=== PATIENT | male | born 1965 | race Caucasian/White ===

== ENCOUNTER 2018-02-14 23:28 | Inpatient (IN) | payer BC ==
[2018-02-14 23:51] LABS: ADD MAN DIFF? NO
[2018-02-14] MEDS: NITROGLYCERIN SUBLINGUAL 0.4 MG BOTTLE OF 25. SL (23:57)
[2018-02-14] MEDS: ASPIRIN CHEWABLE 81 MG TABLET. PO (23:57)
[2018-02-15 00:01] LABS: ANION GAP 8 (6-14); BLOOD UREA NITROGEN 19 mg/dL (8-26); BUN/CREATININE RATIO 15 (6-20); CALCIUM 9.4 mg/dL (8.5-10.1); CARBON DIOXIDE 28 mmol/L (21-32); CHLORIDE 99 mmol/L (98-107); CREATININE 1.3 mg/dL (0.7-1.3); GFR 57.7; GLUCOSE 409 mg/dL (70-99); POTASSIUM 4.6 mmol/L (3.5-5.1); SODIUM 135 mmol/L (136-145)
[2018-02-15 00:02] LABS: BASO % 1 % (0-3); EOS # 0.5 x10^3/uL (0.0-0.7); EOS % 5 % (0-3); HEMATOCRIT 44.5 % (39.0-53.0); HEMOGLOBIN 15.9 g/dL (13.0-17.5); LYMPH # 2.5 x10^3/uL (1.0-4.8); LYMPH % 24 % (24-48); MEAN CORPUSCULAR HEMOGLOBIN 33 pg (25-35); MEAN CORPUSCULAR HGB CONC 36 g/dL (31-37); MEAN CORPUSCULAR VOLUME 92 fL (79-100); MONO # 0.6 x10^3/uL (0.0-1.1); MONO % 6 % (0-9); NEUT # 6.7 x10^3uL (1.8-7.7); NEUT % 65 % (31-73); PLATELET COUNT 259 x10^3/uL (140-400); RED BLOOD COUNT 4.84 x10^6/uL (4.30-5.70); RED CELL DISTRIBUTION WIDTH 12.3 % (11.5-14.5); WHITE BLOOD COUNT 10.4 x10^3/uL (4.0-11.0)
[2018-02-15 00:05] LABS: AGAP ISTAT 16 mmol/L (6-14); BUN ISTAT 21 mg/dL (8-26); CHLORIDE ISTAT 100 mmol/L (98-110); GLUCOSE ISTAT 398 mg/dL (70-99); HEMATOCRIT ISTAT 46 % (37-52); HEMOGLOBIN ISTAT 15.6 g/dL (14-18); ION CA ISTAT 1.23 mmol/L (1.13-1.32); POTASSIUM ISTAT 4.6 mmol/L (3.5-5.0); SODIUM ISTAT 137 mmol/L (135-145); TOT CO2 ISTAT 26 mmol/L (23-32)
[2018-02-15 00:07] LABS: ALBUMIN 4.1 g/dL (3.4-5.0); ALBUMIN/GLOBULIN RATIO 0.9 (1.0-1.7); ALK PHOS 81 U/L (46-116); ALT (SGPT) 40 U/L (16-63); TOTAL BILIRUBIN 0.5 mg/dL (0.2-1.0); TOTAL PROTEIN 8.6 g/dL (6.4-8.2)
[2018-02-15] MEDS: fentaNYL PF VIAL 100 MCG/2 ML VIAL IV ×6 (00:15→23:23)
[2018-02-15] MEDS ORDERED: CONTRAST GIVEN MC (00:30)
[2018-02-15] MEDS: IOHEXOL 300 MG/ML 100ML VIAL. IV (00:30)
[2018-02-15 00:40] LABS: AST (SGOT) 25 U/L (15-37)
[2018-02-15] MEDS ORDERED: MIDAZOLAM HCL/PF 2 MG/2 ML VIAL. (00:47)
[2018-02-15] MEDS ORDERED: LIDOCAINE 2% 20 ML VIAL. (00:47)
[2018-02-15] MEDS ORDERED: fentaNYL PF VIAL 100 MCG/2 ML VIAL (00:47)
[2018-02-15] MEDS ORDERED: IODIXANOL 320 MG/ML 100 ML VIAL. ×3 (00:51→01:38)
[2018-02-15] MEDS: NITROGLYCERIN SUBLINGUAL 0.4 MG BOTTLE OF 25. SL (00:51)
[2018-02-15] MEDS: MIDAZOLAM HCL/PF 2 MG/2 ML VIAL. IV (01:15)
[2018-02-15] MEDS ORDERED: BIVALIRUDIN 250 MG VIAL. IV (01:22)
[2018-02-15] MEDS ORDERED: HEPARIN for IV BOLUS 10,000 UNIT/10 ML VIAL. (01:31)
[2018-02-15] MEDS: CLOPIDOGREL BISULFATE 75 MG TABLET PO (01:45)
[2018-02-15] MEDS ORDERED: TICAGRELOR 90 MG TABLET. (02:03)
[2018-02-15] MEDS ORDERED: ASPIRIN 325 MG TABLET (02:03)
[2018-02-15] MEDS ORDERED: NITROGLYCERIN PREMIX 250 ML IV (02:14)
[2018-02-15] MEDS: NITROGLYCERIN PREMIX 250 ML IV ×2 (02:15→02:45)
[2018-02-15] MEDS: ASPIRIN 325 MG TABLET PO (02:20)
[2018-02-15] MEDS: TICAGRELOR 90 MG TABLET. PO ×3 (02:20→21:15)
[2018-02-15] MEDS: BIVALIRUDIN 250 MG VIAL. IV (02:28)
[2018-02-15] MEDS: LIDOCAINE 2% 20 ML VIAL. IJ (02:29)
[2018-02-15] MEDS: IODIXANOL 320 MG/ML 100 ML VIAL. IART (02:30)
[2018-02-15] MEDS: HEPARIN for IV BOLUS 10,000 UNIT/10 ML VIAL. IV (02:31)
[2018-02-15] MEDS ORDERED: ATROPINE 0.5 MG/5 ML DISP.SYRINGE. IV (02:45)
[2018-02-15] MEDS ORDERED: LIDOCAINE 2% 100 MG/5 ML SYRINGE. IV (02:45)
[2018-02-15] MEDS ORDERED: 0.9 % SODIUM CHLORIDE 10 ML DISP.SYRIN. IV (02:45)
[2018-02-15] MEDS ORDERED: HYDROcodone/APAP 5/325MG 1 TAB TABLET PO (02:45)
[2018-02-15] MEDS ORDERED: AMIODARONE 150 MG in IV DEXTROSE 5% 100 ML IV (02:45)
[2018-02-15] MEDS ORDERED: NITROGLYCERIN SUBLINGUAL 0.4 MG BOTTLE OF 25. SL (02:45)
[2018-02-15] MEDS ORDERED: HEPARIN for IV BOLUS 10,000 UNIT/10 ML VIAL. IV (03:30)
[2018-02-15] MEDS ORDERED: HEPARIN 25,000UTS/500ML PREMIX 500 ML IV (03:30)
[2018-02-15] MEDS: HEPARIN 25,000UTS/500ML PREMIX 500 ML IV (03:33)
[2018-02-15 05:03] LABS: TROPONINI 0.988 ng/mL (0.000-0.055)
[2018-02-15 05:26] LABS: BLOOD UREA NITROGEN 17 mg/dL (8-26); CALCIUM 8.8 mg/dL (8.5-10.1); GLUCOSE 395 mg/dL (70-99)
[2018-02-15 05:27] LABS: ANION GAP 6 (6-14); CARBON DIOXIDE 28 mmol/L (21-32); CHLORIDE 103 mmol/L (98-107); CHOLESTEROL 218 mg/dL (0-200); CHOLESTEROL/HDL RATIO 6.6; CREATININE 1.2 mg/dL (0.7-1.3); GFR 63.3; HDLC 33 mg/dL (40-60); LDLC 98 mg/dL (0-100); MAGNESIUM 2.1 mg/dL (1.8-2.4); NON-HDL CHOLESTEROL 185 mg/dL (0-129); POTASSIUM 4.9 mmol/L (3.5-5.1); SODIUM 137 mmol/L (136-145); TRIGLYCERIDES 434 mg/dL (0-150); VLDLC 87 mg/dL (0-40)
[2018-02-15] MEDS ORDERED: DEXTROSE 50% 25 GM / 50ML DISP.SYRIN. IV ×2 (08:15→10:00)
[2018-02-15] MEDS: METOPROLOL TART IMMED RELEASE 25 MG TABLET. PO (08:56)
[2018-02-15] MEDS: LOSARTAN POTASSIUM 50 MG TABLET. PO (08:57)
[2018-02-15] MEDS: INSULIN LISPRO 300 UNITS/3 ML INSULN.PEN. SQ ×6 (08:58→21:33)
[2018-02-15] MEDS ORDERED: LISINOPRIL 5 MG TABLET. PO (09:00)
[2018-02-15] MEDS: IV NORMAL SALINE 1000ML BAG 1,000 ML IV (09:56)
[2018-02-15 10:04] LABS: ISTAT ACT 119 sec (92-181)
[2018-02-15] MEDS: HYDROcodone/APAP 5/325MG 1 TAB TABLET PO (11:31)
[2018-02-15 11:38] LABS: POC GLUCOSE 307 mg/dL (70-99)
[2018-02-15] MEDS: TRIAMCINOLONE ACETONIDE 0.1% TOPICAL CREAM 15GM TUBE. TP ×2 (12:18→21:16)
[2018-02-15 17:50] LABS: POC GLUCOSE 230 mg/dL (70-99)
[2018-02-15] MEDS: ATORVASTATIN CALCIUM 20 MG TABLET PO (21:14)
[2018-02-15] MEDS: amLODIPine BESYLATE 10 MG TABLET PO (21:15)
[2018-02-15] MEDS: hydrALAZINE 20 MG/ML VIAL. IVP (21:16)
[2018-02-15] MEDS: INSULIN GLARGINE 300 UNITS/3 ML INSULN.PEN. SQ (21:19)
[2018-02-15 21:24] LABS: POC GLUCOSE 285 mg/dL (70-99)
[2018-02-15 23:11] LABS: MRSA BY PCR Negative (Negative)
[2018-02-16 03:40] LABS: ADD MAN DIFF? NO
[2018-02-16] MEDS: IV NORMAL SALINE 1000ML BAG 1,000 ML IV ×2 (03:46→18:32)
[2018-02-16] MEDS: ACETAMINOPHEN 325 MG TABLET. PO ×2 (03:46→08:20)
[2018-02-16 03:50] LABS: BASO % 0 % (0-3); EOS # 0.2 x10^3/uL (0.0-0.7); EOS % 1 % (0-3); HEMATOCRIT 43.5 % (39.0-53.0); HEMOGLOBIN 15.5 g/dL (13.0-17.5); LYMPH # 1.8 x10^3/uL (1.0-4.8); LYMPH % 12 % (24-48); MEAN CORPUSCULAR HEMOGLOBIN 33 pg (25-35); MEAN CORPUSCULAR HGB CONC 36 g/dL (31-37); MEAN CORPUSCULAR VOLUME 92 fL (79-100); MONO # 0.8 x10^3/uL (0.0-1.1); MONO % 5 % (0-9); NEUT # 11.9 x10^3uL (1.8-7.7); NEUT % 81 % (31-73); PLATELET COUNT 228 x10^3/uL (140-400); RED BLOOD COUNT 4.73 x10^6/uL (4.30-5.70); RED CELL DISTRIBUTION WIDTH 12.6 % (11.5-14.5); WHITE BLOOD COUNT 14.7 x10^3/uL (4.0-11.0)
[2018-02-16 04:07] LABS: ANION GAP 11 (6-14); BLOOD UREA NITROGEN 15 mg/dL (8-26); CALCIUM 8.8 mg/dL (8.5-10.1); CARBON DIOXIDE 24 mmol/L (21-32); CHLORIDE 101 mmol/L (98-107); CREATININE 0.9 mg/dL (0.7-1.3); GFR 88.3; GLUCOSE 225 mg/dL (70-99); SODIUM 136 mmol/L (136-145)
[2018-02-16 04:41] LABS: POTASSIUM 3.6 mmol/L (3.5-5.1)
[2018-02-16 07:06] LABS: POC GLUCOSE 301 mg/dL (70-99)
[2018-02-16] MEDS: METOPROLOL TART IMMED RELEASE 50 MG TABLET. PO (08:20)
[2018-02-16] MEDS: TICAGRELOR 90 MG TABLET. PO ×2 (08:20→20:53)
[2018-02-16] MEDS: TRIAMCINOLONE ACETONIDE 0.1% TOPICAL CREAM 15GM TUBE. TP ×2 (08:20→20:53)
[2018-02-16] MEDS: ASPIRIN ENTERIC COATED 81 MG TABLET.DR. PO (08:20)
[2018-02-16] MEDS: LOSARTAN POTASSIUM 50 MG TABLET. PO (08:21)
[2018-02-16] MEDS: INSULIN LISPRO 300 UNITS/3 ML INSULN.PEN. SQ ×7 (08:40→21:00)
[2018-02-16 08:41] LABS: POC GLUCOSE 231 mg/dL (70-99)
[2018-02-16] MEDS ORDERED: TICAGRELOR 90 MG TABLET. PO (09:00)
[2018-02-16 12:42] LABS: POC GLUCOSE 217 mg/dL (70-99)
[2018-02-16] MEDS: POTASSIUM CHLORIDE 20 MEQ TABLET.ER. PO (14:41)
[2018-02-16 17:40] LABS: POC GLUCOSE 236 mg/dL (70-99)
[2018-02-16] MEDS: CARVEDILOL 12.5 MG TABLET. PO (18:35)
[2018-02-16 20:52] LABS: POC GLUCOSE 311 mg/dL (70-99)
[2018-02-16] MEDS: ATORVASTATIN CALCIUM 20 MG TABLET PO (20:53)
[2018-02-16] MEDS: INSULIN GLARGINE 300 UNITS/3 ML INSULN.PEN. SQ (20:56)
[2018-02-17 05:06] LABS: ADD MAN DIFF? NO
[2018-02-17 05:19] LABS: BASO % 0 % (0-3); EOS # 0.4 x10^3/uL (0.0-0.7); EOS % 3 % (0-3); HEMATOCRIT 42.8 % (39.0-53.0); HEMOGLOBIN 15.2 g/dL (13.0-17.5); LYMPH # 2.7 x10^3/uL (1.0-4.8); LYMPH % 22 % (24-48); MEAN CORPUSCULAR HEMOGLOBIN 33 pg (25-35); MEAN CORPUSCULAR HGB CONC 36 g/dL (31-37); MEAN CORPUSCULAR VOLUME 92 fL (79-100); MONO # 0.9 x10^3/uL (0.0-1.1); MONO % 7 % (0-9); NEUT # 8.3 x10^3uL (1.8-7.7); NEUT % 68 % (31-73); PLATELET COUNT 242 x10^3/uL (140-400); RED BLOOD COUNT 4.64 x10^6/uL (4.30-5.70); RED CELL DISTRIBUTION WIDTH 12.4 % (11.5-14.5); WHITE BLOOD COUNT 12.3 x10^3/uL (4.0-11.0)
[2018-02-17 05:49] LABS: ANION GAP 9 (6-14); BLOOD UREA NITROGEN 18 mg/dL (8-26); CALCIUM 9.5 mg/dL (8.5-10.1); CARBON DIOXIDE 26 mmol/L (21-32); CHLORIDE 102 mmol/L (98-107); CREATININE 0.9 mg/dL (0.7-1.3); GFR 88.3; GLUCOSE 177 mg/dL (70-99); POTASSIUM 3.8 mmol/L (3.5-5.1); SODIUM 137 mmol/L (136-145)
[2018-02-17] MEDS: INSULIN LISPRO 300 UNITS/3 ML INSULN.PEN. SQ ×2 (07:30→08:48)
[2018-02-17 08:04] LABS: POC GLUCOSE 137 mg/dL (70-99)
[2018-02-17] MEDS: TRIAMCINOLONE ACETONIDE 0.1% TOPICAL CREAM 15GM TUBE. TP (08:43)
[2018-02-17] MEDS: TICAGRELOR 90 MG TABLET. PO (08:43)
[2018-02-17] MEDS: ASPIRIN ENTERIC COATED 81 MG TABLET.DR. PO (08:43)
[2018-02-17] MEDS: LOSARTAN POTASSIUM 50 MG TABLET. PO (08:44)
[2018-02-17] MEDS: CARVEDILOL 12.5 MG TABLET. PO (08:44)
[2018-02-17] MEDS: hydroCHLOROthiazide 12.5 MG CAPSULE PO (09:03)
== END 2018-02-17 12:10 | disposition home or self-care (01) | DRG 247 ==
LOC: 1 WEST ICU 02-15 01:00 → ER 23:28 → 2 SOUTH 02-16 18:22
PROC: 027034Z Dilation of Coronary Artery, One Artery with Drug-eluting Intraluminal Device, Percutaneous Approach (ICD-10-PCS; principal; 2018-02-15)
PROC: 4A023N7 Measurement of Cardiac Sampling and Pressure, Left Heart, Percutaneous Approach (ICD-10-PCS; 2018-02-15)
PROC: B2151ZZ Fluoroscopy of Left Heart using Low Osmolar Contrast (ICD-10-PCS; 2018-02-15)
DX: I21.3 ST elevation (STEMI) myocardial infarction of unspecified site (principal); I11.0 Hypertensive heart disease with heart failure; I50.20 Unspecified systolic (congestive) heart failure; E11.65 Type 2 diabetes mellitus with hyperglycemia; Z95.5 Presence of coronary angioplasty implant and graft; D72.829 Elevated white blood cell count, unspecified; E78.5 Hyperlipidemia, unspecified; I16.0 Hypertensive urgency; M19.90 Unspecified osteoarthritis, unspecified site; M10.9 Gout, unspecified; I25.10 Atherosclerotic heart disease of native coronary artery without angina pectoris; I25.2 Old myocardial infarction; Z79.4 Long term (current) use of insulin; Z82.49 Family history of ischemic heart disease and other diseases of the circulatory system; Z83.3 Family history of diabetes mellitus
CPT/HCPCS: 36415; 71045; 71275; 80047; 80048; 80053; 80061; 82962; 83735; 84484; 85025; 85347; 87641; 92928; 93005; 93306; 93458; 96374; 96375; 99285; 99285-25; C1713; C1725; C1769; C1892; J0360; J0583; J1644; J1815; J3010; J3490; J7030; J7050

== ENCOUNTER → 2019-05-16 | Outpatient (CLI) | payer BC ==
[2018-02-17 11:00] VITALS: BP 151/101
[~2019-05-16] MED LIST: AMLO5TAB10 PO; AMLO5TAB4 PO; ASPI-612 PO; ATOR40TA PO; ATOR40TA59 PO; CARV12.511 PO; CARV25TA PO; CEFA2PIG IV; CIPR500T95 PO; CLOP75TA PO; COLC0.6T34 PO; EMPA25TA PO; EXEN2AUT SQ; FURO20TA3 PO; GABA300C18 PO; HYDR-2145 PO; HYDR12.575 PO; INDO75CA3 PO; INSU100I13 SQ; INSU100I17 SQ; INSU100I32 SQ; LOSA-73 PO; LOSA100T14 PO; LOSA25TA54 PO; METF10007 PO; METF500T16 PO; METO50TA6 PO; OMEG-33 PO; OXYC10TA PO; POTA10TA12 PO; TICA90TA PO; TRAZ-118 PO; VALS320T2 PO; percocet PO
[2019-05-16 12:31] LABS: ALBUMIN 3.6 g/dL (3.4-5.0); GFR 77.6; POTASSIUM 4.1 mmol/L (3.5-5.1)
[2019-05-16 12:38] LABS: BASO # 0.1 x10^3/uL (0.0-0.2); BASO % 1 % (0-3); EOS # 0.5 x10^3/uL (0.0-0.7); EOS % 5 % (0-3); HEMATOCRIT 40.6 % (39.0-53.0); HEMOGLOBIN 14.4 g/dL (13.0-17.5); LYMPH # 2.2 x10^3/uL (1.0-4.8); LYMPH % 22 % (24-48); MEAN CORPUSCULAR HEMOGLOBIN 33 pg (25-35); MEAN CORPUSCULAR HGB CONC 36 g/dL (31-37); MEAN CORPUSCULAR VOLUME 93 fL (79-100); MONO # 0.6 x10^3/uL (0.0-1.1); MONO % 6 % (0-9); NEUT # 6.6 x10^3/uL (1.8-7.7); NEUT % 67 % (31-73); PLATELET COUNT 243 x10^3/uL (140-400); RED BLOOD COUNT 4.39 x10^6/uL (4.30-5.70); RED CELL DISTRIBUTION WIDTH 12.7 % (11.5-14.5); WHITE BLOOD COUNT 9.9 x10^3/uL (4.0-11.0)
== END | disposition home or self-care (01) ==
LOC: SURGPAT 11:37
PROVIDERS: ATTEND Surgery
DX: Z01.818 Encounter for other preprocedural examination (principal); K42.9 Umbilical hernia without obstruction or gangrene; R59.1 Generalized enlarged lymph nodes
CPT/HCPCS: 36415; 80048; 82040; 85025

== ENCOUNTER 2019-05-23 10:03 | Day surgery (SDC) | payer BC ==
[~2019-05-23] VITALS: Ht 182.9 cm; Wt 88.0 kg
[~2019-05-23 10:03] MED LIST changes: +BUPIVACAINE-EPI 0.5%-1:200000 MPF 30 ML VIAL. INJ ONE; +HYDROmorphone 2 MG/ML VIAL IV PRN; +IV RINGERS,LACTATED 1000ML 1,000 ML IV SCH; +MORPHINE SULFATE 2 MG/ML VIAL. IV PRN; +ONDANSETRON PF 4 MG/2 ML VIAL. IV PRN; +PROCHLORPERAZINE 10 MG/2 ML VIAL. IV PRN; +fentaNYL PF VIAL 100 MCG/2 ML VIAL IV PRN
[2019-05-23] MEDS ORDERED: SCOPOLAMINE 1.5MG PATCH. TD SCH (10:42)
--- NOTE | 2019-05-23 12:03 | RAD ---
Examination: EXTREM NONVASCULAR LTD RIGHT History: Right groin lymph nodes Comparison/Correlation: None Findings: Ultrasound imaging of the right groin was performed. Benign-appearing lymph nodes are present. Normal clark evident. No suspicious cortical thickening identified. No suspicious mass. Impression: No suspicious right groin lymph nodes. Electronically signed by: Dion Jesus MD (05/23/2019 12:00 PM) [facility]
[2019-05-23] MEDS ORDERED: ONDANSETRON PF 4 MG/2 ML VIAL. ONE (12:59)
[2019-05-23] MEDS ORDERED: DEXAMETHASONE SOD PHOS 4 MG/ML VIAL ONE (12:59)
[2019-05-23] MEDS ORDERED: PROPOFOL 20 ML IV ONE (12:59)
[2019-05-23] MEDS ORDERED: LIDOCAINE 2% PF 5 ML VIAL. ONE (12:59)
[2019-05-23] MEDS ORDERED: fentaNYL PF VIAL 100 MCG/2 ML VIAL ONE (13:00)
[2019-05-23] MEDS ORDERED: MIDAZOLAM HCL/PF 2 MG/2 ML VIAL. ONE (13:01)
[2019-05-23] MEDS ORDERED: BUPIVACAINE MPF 0.5% 30 ML VIAL. IJ ONE (13:38)
[2019-05-23] MEDS ORDERED: PHENYLEPHRINE in 0.9% NACL PF 1 MG/10 ML SYRINGE. IV ONE (13:48)
--- NOTE | 2019-05-23 14:17 | DISCH ---
DISCHARGE INSTRUCTIONS Condition on Discharge Condition on Discharge: Stable Activity After Discharge Activity Instructions for Disc: Activity as tolerated, Avoid exertion Lifting Instructions after Dis: No heavy lifting Driving Instructions after Dis: Do not drive (2-3 days) Diet after Discharge Diet after Discharge: Cardiac Diet Texture: Regular Wound Incision Care Wound/Incision Care: Ice to area for comfort, Other, see below (january) Checks after Discharge Checks after discharge: Check blood press - daily, Check blood sugar, ac/hs Follow-Up Follow up with: Carlos Alberto two weeks Treatment/Equipment after DC Adaptive Equipment Issued: None SHIMA DENIS MD May 23, 2019 14:16
--- NOTE | 2019-05-23 14:37 | PDOC ---
BRIEF OPERATIVE NOTE Date: May 23, 2019 Pre-Op Diagnosis umbilical hernia Post-Op Diagnosis same Procedure Performed primary repair Surgeon Carlos Alberto Anesthesia Type: General Blood Loss 5cc IV Fluid 700cc Specimens Obtained none Findings small defect with extruded omentum Complications none Operative Note Wk # [id number] SHIMA DENIS MD May 23, 2019 14:37
[2019-05-23] MEDS ORDERED: OXYC1TAB15 PO (14:39)
[2019-05-23] MEDS ORDERED: DOCU-150 PO (14:40)
[2019-05-23] MEDS ORDERED: oxyCODONE/APAP 5/325 1 TAB TABLET PO ONE (14:45)
--- NOTE | 2019-05-23 14:45 | OP ---
DATE OF SURGERY: 05/23/2019 PREOPERATIVE DIAGNOSIS: Umbilical hernia. POSTOPERATIVE DIAGNOSIS: Umbilical hernia. PROCEDURE: Primary repair. SURGEON: Scott Denis MD ANESTHESIA: General endotracheal. ESTIMATED BLOOD LOSS: 5 mL. INTRAVENOUS FLUIDS: 700 mL. DESCRIPTION OF PROCEDURE: The patient brought to the operating suite, given a general anesthetic and the abdomen prepped and draped in usual sterile fashion. An infraumbilical incision was infiltrated with 0.5% plain Marcaine, incised and dissection carried down to the anterior sheath. Hernia was encircled and a Kaleb drain placed around it. The umbilical skin was freed from the hernia sac. The contents were mobilized and reduced. The small defect was closed with interrupted inverted 0 PDS followed by a single stitch of 0 Vicryl. Good hemostasis was present. The umbilical skin tacked to the repair with 3-0 Vicryl, skin closed with a subcuticular 4-0 Monocryl. Steri-Strips and sterile dressing applied. The patient was awakened from his anesthetic and taken to the recovery room in satisfactory condition. SCOTT DENIS MD DR: VIET/carmela JOB#: [id number] / [id number]
[2019-05-23 15:15] VITALS: BP 149/97
== END 2019-05-23 15:49 | disposition home or self-care (01) ==
LOC: US 10:03
PROVIDERS: ATTEND Surgery
DX: K42.9 Umbilical hernia without obstruction or gangrene (principal); E78.5 Hyperlipidemia, unspecified; K21.9 Gastro-esophageal reflux disease without esophagitis; I25.10 Atherosclerotic heart disease of native coronary artery without angina pectoris; I25.2 Old myocardial infarction; Z79.82 Long term (current) use of aspirin; Z95.5 Presence of coronary angioplasty implant and graft; Z98.890 Other specified postprocedural states
CPT/HCPCS: 49585; 76882; 82962; A7015; J0696; J1100; J2001; J2250; J2370; J2405; J2704; J3010; J3490; J7120

== ENCOUNTER → 2019-07-02 | Outpatient (CLI) | payer BC ==
[~2019-07-02] MED LIST changes: -BUPIVACAINE-EPI 0.5%-1:200000 MPF 30 ML VIAL. INJ ONE; +DOCU-150 PO; -HYDROmorphone 2 MG/ML VIAL IV PRN; -IV RINGERS,LACTATED 1000ML 1,000 ML IV SCH; -MORPHINE SULFATE 2 MG/ML VIAL. IV PRN; -ONDANSETRON PF 4 MG/2 ML VIAL. IV PRN; +OXYC1TAB15 PO; -PROCHLORPERAZINE 10 MG/2 ML VIAL. IV PRN; -fentaNYL PF VIAL 100 MCG/2 ML VIAL IV PRN
--- NOTE | 2019-07-02 13:31 | RAD ---
MR of the right foot HISTORY: Right forefoot osteomyelitis. First toe ulcer. TECHNIQUE: Routine multiplanar sequences are obtained. FINDINGS: Mild marrow edema within the distal phalanx of the first toe. No aggressive bone destruction. Replacement of the normal subcutaneous fatty signal at the distal aspect of the first toe with skin thickening, presumably related to the distal toe ulcer. There is minimal fluid signal located lateral to the distal aspect of the proximal first phalanx, only measuring 7 x 3 x 6 mm. Uncertain nature but could represent a tiny abscess. No other fluid collection is seen. Visualized tendons are intact. No significant tendon sheath fluid. Lisfranc ligament complex is intact as is tarsometatarsal alignment. Mild diffuse intramuscular and soft tissue edema. IMPRESSION: 1. Soft tissue changes at the distal aspect of first toe compatible with edema or cellulitis. 2. Tiny fluid signal pocket lateral to the base of the first toe, nonspecific but possibly a tiny subcentimeter abscess. 3. Mild marrow edema within the distal first phalanx may just be reactive. No specific or definitive evidence of osteomyelitis, but the possibility of early osteomyelitis should not be completely excluded given the presence of an adjacent ulcer. Electronically signed by: Sree Mendes MD (07/02/2019 1:28 PM) [facility]
== END | disposition home or self-care (01) ==
LOC: MRI 10:15
PROVIDERS: ATTEND Podiatrist Foot & Ankle Surgery
DX: R60.0 Localized edema (principal)
CPT/HCPCS: 73718

== ENCOUNTER 2019-07-10 09:46 | Day surgery (SDC) | payer BC ==
[~2019-07-10] VITALS: Ht 175.3 cm; Wt 76.2 kg
[~2019-07-10 09:46] MED LIST changes: +HYDROmorphone 2 MG/ML VIAL IV PRN; +IV RINGERS,LACTATED 1000ML 1,000 ML IV SCH; +MORPHINE SULFATE 2 MG/ML VIAL. IV PRN; +ONDANSETRON PF 4 MG/2 ML VIAL. IV PRN; +PROCHLORPERAZINE 10 MG/2 ML VIAL. IV PRN; +fentaNYL PF VIAL 100 MCG/2 ML VIAL IV PRN
[2019-07-10] MEDS ORDERED: SCOPOLAMINE 1.5MG PATCH. TD ONE (10:45)
[2019-07-10 10:57] LABS: BASO % 0 % (0-3); EOS # 0.5 x10^3/uL (0.0-0.7); EOS % 5 % (0-3); HEMATOCRIT 41.5 % (39.0-53.0); HEMOGLOBIN 14.8 g/dL (13.0-17.5); LYMPH # 2.4 x10^3/uL (1.0-4.8); LYMPH % 27 % (24-48); MEAN CORPUSCULAR HEMOGLOBIN 33 pg (25-35); MEAN CORPUSCULAR HGB CONC 36 g/dL (31-37); MEAN CORPUSCULAR VOLUME 92 fL (79-100); MONO # 0.5 x10^3/uL (0.0-1.1); MONO % 6 % (0-9); NEUT # 5.4 x10^3/uL (1.8-7.7); NEUT % 62 % (31-73); PLATELET COUNT 228 x10^3/uL (140-400); RED BLOOD COUNT 4.53 x10^6/uL (4.30-5.70); RED CELL DISTRIBUTION WIDTH 12.5 % (11.5-14.5); WHITE BLOOD COUNT 8.8 x10^3/uL (4.0-11.0)
[2019-07-10 11:00] LABS: CALCIUM 8.8 mg/dL (8.5-10.1); GFR 77.6
[2019-07-10] MEDS ORDERED: INSULIN LISPRO 100 UNIT/ML 3ML VIAL for OP,RR ONLY. SQ PRN (11:15)
[2019-07-10] MEDS ORDERED: DEXAMETHASONE SOD PHOS 4 MG/ML VIAL ONE ×2 (11:19→11:35)
[2019-07-10] MEDS ORDERED: PROPOFOL 20 ML IV ONE (11:19)
[2019-07-10] MEDS ORDERED: FAMOTIDINE 20 MG/2 ML VIAL ONE (11:19)
[2019-07-10] MEDS ORDERED: ONDANSETRON PF 4 MG/2 ML VIAL. ONE (11:19)
[2019-07-10] MEDS ORDERED: LIDOCAINE 2% PF 5 ML VIAL. ONE (11:19)
[2019-07-10] MEDS ORDERED: MIDAZOLAM HCL/PF 2 MG/2 ML VIAL. ONE (11:20)
[2019-07-10] MEDS ORDERED: KETOROLAC 30 MG/ML VIAL. ONE (11:22)
--- NOTE | 2019-07-10 11:27 | PDOC1 ---
History and Physical Date of Admission Date of Admission DATE: 07/10/19 TIME: 11:23 Identification/Chief Complaint Chief Complaint Foot infection Source Source: Chart review, Patient History of Present Illness History of Present Illness Mr Mosher is a 52 year old male w/ PMHx CAD s/p KALI x1 to LAD 02/19/18, HTN, HLD, DM2, Gout who is seen in outpatient for planned right great toe debridement of infection. Pt said he has no sob or N/V. no fever, chills, no CP, no recent sick contacts. He has vomiting with anesthesia previously. Holding ASA and plavix. Had recent EKG unchanged from prior, reviewed. Past Medical History Cardiovascular: CAD, HTN, [place], Hyperlipidemia Pulmonary: No pertinent hx CENTRAL NERVOUS SYSTEM: Other GI: No pertinent hx Heme/Onc: No pertinent hx Hepatobiliary: No pertinent hx Psych: No pertinent hx Musculoskeletal: Osteoarthritis, Other Rheumatologic: Gout Infectious disease: No pertinent hx Renal/: No pertinent hx Endocrine: Diabetes Past Surgical History Past Surgical History: Other Family History Family History: No Significant, Coronary Artery Disease, Diabetes, Hypertension Social History Smoke: No ALCOHOL: none Drugs: None Current Medications Current Medications Current Medications Ondansetron HCl (Zofran) 4 mg PRN Q6HRS PRN IV NAUSEA/VOMITING; Start 07/10/19 at 07:00; Stop 07/11/19 at 06:59 Fentanyl Citrate (Fentanyl 2ml Vial) 25 mcg PRN Q5MIN PRN IV MILD PAIN 1-3; Start 07/10/19 at 07:00; Stop 07/11/19 at 06:59 Fentanyl Citrate (Fentanyl 2ml Vial) 50 mcg PRN Q5MIN PRN IV MODERATE TO SEVERE PAIN; Start 07/10/19 at 07:00; Stop 07/11/19 at 06:59 Morphine Sulfate (Morphine Sulfate) 1 mg PRN Q10MIN PRN IV SEVERE PAIN 7-10; Start 07/10/19 at 07:00; Stop 07/11/19 at 06:59 Ringer's Solution 1,000 ml @ 30 mls/hr Q24H IV Last administered on 07/10/19at 10:37; Start 07/10/19 at 07:00; Stop 07/10/19 at 18:59 Hydromorphone HCl (Dilaudid) 0.5 mg PRN Q10MIN PRN IV SEV PAIN, Second choice; Start 07/10/19 at 07:00; Stop 07/11/19 at 06:59 Prochlorperazine Edisylate (Compazine) 5 mg PACU PRN PRN IV NAUSEA, MRX1; Start 07/10/19 at 07:00; Stop 07/11/19 at 06:59 Levofloxacin/ Dextrose 100 ml @ 100 mls/hr 1X PREOP PRN IV PRIOR TO PROCEDURE; Start 07/10/19 at 06:00; Stop 07/10/19 at 18:00 Scopolamine (Transderm-Scop) 1 patch 1X ONCE TD Last administered on 07/10/19at 11:05; Start 07/10/19 at 10:45; Stop 07/10/19 at 10:46; Status DC Insulin Human Lispro (HumaLOG VIAL for OP,RR ONLY) 0-10 units PRN Q1HR PRN SQ PER PROTOCOL; Start 07/10/19 at 11:15; Stop 07/11/19 at 11:14 Propofol 20 ml @ As Directed STK-MED ONCE IV ; Start 07/10/19 at 11:19; Stop 07/10/19 at 11:20; Status DC Famotidine (Pepcid Vial) 20 mg STK-MED ONCE .ROUTE ; Start 07/10/19 at 11:19; Stop 07/10/19 at 11:20; Status DC Lidocaine HCl (Lidocaine Pf 2% Vial) 5 ml STK-MED ONCE .ROUTE ; Start 07/10/19 at 11:19; Stop 07/10/19 at 11:20; Status DC Ondansetron HCl (Zofran) 4 mg STK-MED ONCE .ROUTE ; Start 07/10/19 at 11:19; Stop 07/10/19 at 11:20; Status DC Dexamethasone Sodium Phosphate (Decadron) 4 mg STK-MED ONCE .ROUTE ; Start 07/10/19 at 11:19; Stop 07/10/19 at 11:20; Status DC Midazolam HCl (Versed) 2 mg STK-MED ONCE .ROUTE ; Start 07/10/19 at 11:20; Stop 07/10/19 at 11:20; Status DC Ketorolac Tromethamine (Toradol 30mg Vial) 30 mg STK-MED ONCE .ROUTE ; Start 07/10/19 at 11:22; Stop 07/10/19 at 11:22; Status DC Active Scripts Active Hydrochlorothiazide Capsule (Hydrochlorothiazide) 12.5 Mg Capsule 25 Mg PO DAILY 30 Days Losartan Potassium 100 Mg Tablet 1 Tab PO DAILY Aspirin Ec (Aspirin) 81 Mg Tablet.dr 81 Mg PO DAILYWBKFT Reported Stool Softener (Docusate Sodium) 100 Mg Capsule 100 Mg PO BID Trazodone Hcl 50 Mg Tablet 50 Mg PO HS Jardiance (Empagliflozin) 25 Mg Tablet 25 Mg PO DAILY Clopidogrel (Clopidogrel Bisulfate) 75 Mg Tablet 1 Tab PO DAILY Bydureon Bcise (Exenatide Microspheres) 2 Mg/0.85 Ml Auto.injct 2 Mg SQ QSU Amlodipine Besylate 5 Mg Tablet 5 Mg PO DAILY Basaglar Kwikpen U-100 (Insulin Glargine,Hum.rec.anlog) 100 Unit/1 Ml Insuln.pen 32 Unit SQ HS Metformin Hcl 500 Mg Tablet 500 Mg PO BIDWMEALS Gabapentin (Gabapentin) 300 Mg Capsule 300 Mg PO TID Allergies Allergies: Coded Allergies: No Known Allergies (Verified Allergy, Unknown, 07/10/19) ROS Review of System CONSTITUTIONAL: No fever or chills EYES: No recent changes SKIN: No rash or itching CARDIOVASCULAR: No chest pain, syncope, palpitations, or edema RESPIRATORY: No SOB or cough GASTROINTESTINAL: No nausea, vomiting or abdominal pain NEUROLOGICAL: No headaches or weakness ENDOCRINE: No cold or heat intolerance GENITOURINARY: No urgency or frequency of urination MUSCULOSKELETAL: No back pain or joint pain LYMPHATICS: No enlarged lymph nodes PSYCHIATRIC: No anxiety or depression Physical Exam General: Alert, Oriented X3, Cooperative, No acute distress HEENT: Atraumatic, PERRLA, EOMI, Mucous membr. moist/pink Lungs: Clear to auscultation, Normal air movement Heart: S1S2, RRR, no gallops, no murmurs Rectal Exam: not examined Extremities: No clubbing, No cyanosis, No edema, Normal pulses, No tenderness/swelling Skin: No rashes, No breakdown, No significant lesion Neuro: Normal gait, Normal speech, Strength at 5/5 X4 ext, Normal tone, Cranial nerves 3-12 NL, Reflexes 2+, Other (Decreased sensation in glove and stocking distribution) Psych/Mental Status: Mental status NL, Mood NL Vitals Vitals Vital Signs Date Time Temp Pulse Resp B/P (MAP) Pulse Ox O2 Delivery O2 Flow Rate FiO2 07/10/19 10:27 97.0 89 18 176/108 96 Room Air 97.0 Labs Labs Laboratory Tests Test 07/10/19 10:20 07/10/19 11:08 White Blood Count 8.8 x10^3/uL (4.0-11.0) Red Blood Count 4.53 x10^6/uL (4.30-5.70) Hemoglobin 14.8 g/dL (13.0-17.5) Hematocrit 41.5 % (39.0-53.0) Mean Corpuscular Volume 92 fL (79-100) Mean Corpuscular Hemoglobin 33 pg (25-35) Mean Corpuscular Hemoglobin Concent 36 g/dL (31-37) Red Cell Distribution Width 12.5 % (11.5-14.5) Platelet Count 228 x10^3/uL (140-400) Neutrophils (%) (Auto) 62 % (31-73) Lymphocytes (%) (Auto) 27 % (24-48) Monocytes (%) (Auto) 6 % (0-9) Eosinophils (%) (Auto) 5 % (0-3) Basophils (%) (Auto) 0 % (0-3) Neutrophils # (Auto) 5.4 x10^3/uL (1.8-7.7) Lymphocytes # (Auto) 2.4 x10^3/uL (1.0-4.8) Monocytes # (Auto) 0.5 x10^3/uL (0.0-1.1) Eosinophils # (Auto) 0.5 x10^3/uL (0.0-0.7) Basophils # (Auto) 0.0 x10^3/uL (0.0-0.2) Sodium Level 139 mmol/L (136-145) Potassium Level 4.0 mmol/L (3.5-5.1) Chloride Level 105 mmol/L (98-107) Carbon Dioxide Level 28 mmol/L (21-32) Anion Gap 6 (6-14) Blood Urea Nitrogen 23 mg/dL (8-26) Creatinine 1.0 mg/dL (0.7-1.3) Estimated GFR (Cockcroft-Gault) 77.6 Glucose Level 136 mg/dL (70-99) Calcium Level 8.8 mg/dL (8.5-10.1) Glucose (Fingerstick) 110 mg/dL (70-99) Laboratory Tests Test 07/10/19 10:20 07/10/19 11:08 White Blood Count 8.8 x10^3/uL (4.0-11.0) Red Blood Count 4.53 x10^6/uL (4.30-5.70) Hemoglobin 14.8 g/dL (13.0-17.5) Hematocrit 41.5 % (39.0-53.0) Mean Corpuscular Volume 92 fL (79-100) Mean Corpuscular Hemoglobin 33 pg (25-35) Mean Corpuscular Hemoglobin Concent 36 g/dL (31-37) Red Cell Distribution Width 12.5 % (11.5-14.5) Platelet Count 228 x10^3/uL (140-400) Neutrophils (%) (Auto) 62 % (31-73) Lymphocytes (%) (Auto) 27 % (24-48) Monocytes (%) (Auto) 6 % (0-9) Eosinophils (%) (Auto) 5 % (0-3) Basophils (%) (Auto) 0 % (0-3) Neutrophils # (Auto) 5.4 x10^3/uL (1.8-7.7) Lymphocytes # (Auto) 2.4 x10^3/uL (1.0-4.8) Monocytes # (Auto) 0.5 x10^3/uL (0.0-1.1) Eosinophils # (Auto) 0.5 x10^3/uL (0.0-0.7) Basophils # (Auto) 0.0 x10^3/uL (0.0-0.2) Sodium Level 139 mmol/L (136-145) Potassium Level 4.0 mmol/L (3.5-5.1) Chloride Level 105 mmol/L (98-107) Carbon Dioxide Level 28 mmol/L (21-32) Anion Gap 6 (6-14) Blood Urea Nitrogen 23 mg/dL (8-26) Creatinine 1.0 mg/dL (0.7-1.3) Estimated GFR (Cockcroft-Gault) 77.6 Glucose Level 136 mg/dL (70-99) Calcium Level 8.8 mg/dL (8.5-10.1) Glucose (Fingerstick) 110 mg/dL (70-99) Images Images Right foot MRI - 1. Soft tissue changes at the distal aspect of first toe compatible with edema or cellulitis. 2. Tiny fluid signal pocket lateral to the base of the first toe, nonspecific but possibly a tiny subcentimeter abscess. 3. Mild marrow edema within the distal first phalanx may just be reactive.No specific or definitive evidence of osteomyelitis, but the possibility of early osteomyelitis should not be completely excluded given the presence of an adjacent ulcer. VTE Prophylaxis Ordered VTE Prophylaxis Devices: No VTE Pharmacological Prophylaxi: Yes Assessment/Plan Assessment/Plan A/P: Right great toe abscess with OM - No further testing indicated prior to amputation today. Has scopolamine patch in place CAD s/p KALI x1 to LAD 02/19/18 - holding plavix and ASA since 5 days ago HTN - hold meds HLD - on statin DM2 - cont bydureon. He did take 32 u basaglar las night. Gout - not active No further testing prior to planned surgery. ELMA ESPINOZA MD Jul 10, 2019 11:27
[2019-07-10] MEDS ORDERED: LIDOCAINE 1% PF 30 ML VIAL. ONE (11:33)
[2019-07-10] MEDS ORDERED: BUPIVACAINE MPF 0.5% 30 ML VIAL. ONE (11:33)
[2019-07-10] MEDS ORDERED: POVIDONE-IODINE 10% TOPICAL OINTMENT 28GM TUBE. TP ONE (11:34)
[2019-07-10] MEDS ORDERED: diphenhydrAMINE 50 MG/ML VIAL ONE (12:12)
[2019-07-10] MEDS ORDERED: KETAMINE HCL IN NACL, ISO-OSM 50 MG/5 ML SYRINGE ONE (12:15)
[2019-07-10] MEDS ORDERED: SEVOFLURANE 31 TO 60 MINUTES. IH ONE (12:39)
--- NOTE | 2019-07-10 12:52 | PDOC4 ---
OPERATIVE NOTE: Surgeon : Tran Pre op DX: Osteomyelitis right hallux distal phalanx with chronic recurrent ulceration and hammer toe right hallux Post op DX: Same Procedure: Distal phalanx hallux amputation/resection right hallux Anesthesia: LMA with local Hemostasis: Right ankle tourniquet at 250mmHg x 19 minutes EBL: 1mL Materials: 4-0 nylon Intraoperative findings: note no proximal tract. Proximal phalanx bone appears no infection white glistening cartilage and bone is hard. Distalphalanx with wound plantar aspect positive probe to bone. Specimen: Right hallux distal phalanx Patient tolerated both anesthesia and procedure well transferred to PACU with VSS and VSI to right foot KIANA GREGORY DPM Jul 10, 2019 12:52
--- NOTE | 2019-07-10 13:11 | OP ---
DATE OF SURGERY: 07/10/2019 PREOPERATIVE DIAGNOSIS: Osteomyelitis with recurrent ulceration to the right distal phalanx with hammertoe deformity. POSTOPERATIVE DIAGNOSIS: Osteomyelitis with recurrent ulceration to the right distal phalanx with hammertoe deformity. PROCEDURE: Resection/amputation of the distal phalanx at the level of the IPJ, right hallux. SURGEON: Anjum Mayfield DPM ANESTHESIA: LMA with local. HEMOSTASIS: Right ankle tourniquet at 250 mmHg x 19 minutes. INDICATIONS: The patient is a 54-year-old male with past medical history significant for diabetes with a chronic recurrent ulceration to the distal phalanx of the right hallux. He had the ulceration for several months and was being treated with local wound care and antibiotics and was found to have continued erythema and edema to the right hallux with an ulceration, which probed to bone. MRI was inconclusive and showed possible early osteomyelitis cannot be ruled out. Discussed with the patient the treatment options of serial total contact casting and local wound care with possible allograft versus definitive distal resection as this continues to be recurrent. The patient wished to proceed with distal phalanx resection. Discussed with the patient the risks, benefits, and complications to include delayed or nonhealing; need for further surgery; transfer lesion; loss of toe, foot, limb, or life; DVT; and pulmonary embolism. The patient signed consent freely and no guarantees were made. DESCRIPTION OF PROCEDURE: The patient was transported to the operating room via a cart and placed on the operating room table in supine position. Final verification of the surgery, the patient, and limb was performed. The patient was given IV levofloxacin and a well-padded tourniquet was placed over the right ankle. The patient was transferred to the surgical table in supine position. Final verification of the surgery, the patient, and limb was performed. LMA was administered per anesthesia and performed a hallux block to the right hallux consisting of a 1:1 mixture of 1% lidocaine plain and 0.5% Marcaine plain, 10 mL total. The right foot was then prepped and draped in the usual aseptic manner. Esmarch bandage was used to exsanguinate the right foot and the right ankle tourniquet was inflated to 250 mmHg. Attention was directed to the right hallux where a fishmouth incision was made at the level of the hallux IPJ. This was the hallux interphalangeal joint. This was deepened to the level of the joint and the distal phalanx was resected in toto. Note, the proximal phalanx appeared to be white glistening without signs of infection. There was no proximal tracking. All diseased tissue was resected with the distal phalanx. The small vessels were cauterized. I obtained a wound culture, aerobic and anaerobic, of the remaining hallux and the wound was then copiously irrigated with sterile saline and the incision was closed with 4-0 nylon. The wound was then dressed with Betadine-soaked Adaptic gauze, 4 x 4s, Kerlix bandage and an Blaze bandage. The tourniquet was deflated after 19 minutes. Good perfusion was noted to all digits of the right foot. The patient was transported to the PACU in stable condition. We will have x-rays taken in the PACU and postop instructions are in the chart. ANJUM MAYFIELD DPM DR: Giorgio JOB#: [id number] / [id number]
--- NOTE | 2019-07-10 13:12 | RAD ---
Examination: FOOT RIGHT 3V History: Status post resection of distal phalanx of the great toe Comparison/Correlation: None Findings: Total 3 images the right foot were obtained. Overlying bandages about the distal aspect of the great toe noted. Amputation of the distal phalanx of the great toe noted. Degenerative narrowing of interphalangeal joints evident. No radiopaque foreign body but evaluation is limited in the region of the bandages. Impression: Amputation of the great toe distal phalanx. Electronically signed by: Dion Jesus MD (07/10/2019 1:09 PM) [facility]
[2019-07-10 13:51] VITALS: BP 160/91
--- NOTE | 2019-07-12 22:06 | PATHOLOGY ---
[facility] Accession Number: [id number] . 01 Material submitted: . toe - RIGHT DISTAL PHALANX RIGHT HALLUX. Modifiers: right, distal . 01 Clinical history: . Osteomyelitis right hallux and distal phalanx . 02 Diagnosis: "Right distal phalanx right hallux", amputation: - Skin and subcutaneous tissue with reactive changes including edema, focal acute and chronic inflammation and pseudoepitheliomatous hyperplasia/hyperkeratosis. - Decalcified bone, cartilage and synovium with reactive/reparative changes and bony remodeling. (See comment). (CLW:sadie; 07/12/2019) [facility] 07/12/2019 1625 Local . 02 Comment: The bone changes may represent a component of chronic osteomyelitis. Clinical and radiographic correlation is recommended. (CLW:sadie; 07/12/2019) . 02 Electronically signed: . Morena Christensen MD, Pathologist NPI- [id number] . 01 Gross description: . The specimen is received in formalin, labeled "Edwin Mosher Jr., right distal phalanx right hallux". Received is an AP dated digit measuring 3.9 x 3.6 x 2.7 cm in greatest dimensions. The bone margin is smooth and concave in appearance, consistent with disarticulation. The bone and soft tissue margins are inked. The plantar aspect of the specimen displays exposed underlying soft tissue due to absence of the epidermis. The nail is present displaying a light zafar and thickened appearance. On the plantar aspect of the specimen near the distal aspect, there is a poorly circumscribed, irregular in contour and light zafar to floyd-zafar lesion measuring 2.8 x 1.5 cm, which is 0.5 cm from the closest skin margin. A full-thickness longitudinal cross-section is submitted from proximal to distal aspects in cassettes A1 and A2, following decalcification. (CAA; 07/11/2019) QAC/QAC 07/11/2019 1057 Local . 02 Pathologist provided ICD-10: L98.9, L85.8 . 02 CPT . 637917, [id number] Specimen Comment: A courtesy copy of this report has been sent to Specimen Comment: [phone], . Specimen Comment: Report sent to / DR GIL Performed at: 01 [facility] [address], [place] [id number] MD Parth Almonte MD Phone: [phone] Performed at: 02 [facility] [address] [place], [place] [id number] MD Leo Shah MD Phone: [phone]
== END 2019-07-10 14:10 | disposition home or self-care (01) ==
LOC: SURG 09:46
PROVIDERS: ATTEND Podiatrist Foot & Ankle Surgery
DX: M20.5X1 Other deformities of toe(s) (acquired), right foot (principal); M86.8X7 Other osteomyelitis, ankle and foot; L97.519 Non-pressure chronic ulcer of other part of right foot with unspecified severity; E11.69 Type 2 diabetes mellitus with other specified complication; E11.40 Type 2 diabetes mellitus with diabetic neuropathy, unspecified; I10 Essential (primary) hypertension; E78.00 Pure hypercholesterolemia, unspecified; I25.10 Atherosclerotic heart disease of native coronary artery without angina pectoris; G47.30 Sleep apnea, unspecified; K21.9 Gastro-esophageal reflux disease without esophagitis; E11.319 Type 2 diabetes mellitus with unspecified diabetic retinopathy without macular edema; F31.9 Bipolar disorder, unspecified; M10.9 Gout, unspecified; I25.2 Old myocardial infarction; Z95.5 Presence of coronary angioplasty implant and graft; Z86.010 Personal history of colon polyps; Z87.39 Personal history of other diseases of the musculoskeletal system and connective tissue; Z98.890 Other specified postprocedural states; Z79.84 Long term (current) use of oral hypoglycemic drugs
CPT/HCPCS: 28825; 36415; 73630; 80048; 82962; 85025; 87071; 87075; 87102; A7015; J1100; J1200; J1885; J1956; J2001; J2250; J2405; J2704; J3490; 88305; 88311

== ENCOUNTER 2021-11-02 10:25 | Inpatient (IN) | payer BC ==
[~2021-11-02] VITALS: Ht 182.9 cm; Wt 95.9 kg
[2021-11-02] VITALS (7 sets, daily range): BP systolic 103–137; BP diastolic 56–79
[~2021-11-02 10:25] MED LIST changes: +AMLO-186 PO; -AMLO5TAB10 PO; -ASPI-612 PO; +ASPI-886 PO; -DOCU-150 PO; +DOCU-158 PO; -HYDROmorphone 2 MG/ML VIAL IV PRN; +INDO75CA10 PO; -INDO75CA3 PO; -IV RINGERS,LACTATED 1000ML 1,000 ML IV SCH; -MORPHINE SULFATE 2 MG/ML VIAL. IV PRN; -ONDANSETRON PF 4 MG/2 ML VIAL. IV PRN; -PROCHLORPERAZINE 10 MG/2 ML VIAL. IV PRN; -fentaNYL PF VIAL 100 MCG/2 ML VIAL IV PRN
[2021-11-02] MEDS ORDERED: PREG200C PO (11:24)
--- NOTE | 2021-11-02 11:25 | EKG ---
[facility] [address] [place] [address] Test Date: 2021-11-02 Test Time: 11:21:54 Pat Name: PHOEBE NOLASCO Department: Room: [place] [address] Gender: M [employer]: DONATO : 1965 Requested By: BECCA WEEMS Order Number: [id number] Reading MD: Measurements Intervals [place] Rate: 72 P: 19 VA: 168 QRS: -7 QRSD: 74 T: 22 QT: 376 QTc: 413 Interpretive Statements SINUS RHYTHM LEFTWARD AXIS QRS(T) CONTOUR ABNORMALITY CONSISTENT WITH INFERIOR INFARCT PROBABLY OLD ABNORMAL ECG RI6.02 Compared to ECG 02/16/2018 06:25:36 Left-axis deviation now present Myocardial infarct finding still present
[2021-11-02] MEDS ORDERED: LIDOCAINE 1% PF 2 ML VIAL. ONE (14:11)
[2021-11-02] MEDS ORDERED: IODIXANOL 320 MG/ML 100 ML VIAL. ONE ×2 (14:11→14:57)
[2021-11-02] MEDS ORDERED: HEPARIN for IV BOLUS 10,000 UNIT/10 ML VIAL. ONE (14:19)
[2021-11-02] MEDS ORDERED: VERAPAMIL 5 MG/2 ML VIAL. ONE (14:19)
[2021-11-02] MEDS ORDERED: fentaNYL PF VIAL 100 MCG/2 ML VIAL ONE (14:19)
[2021-11-02] MEDS ORDERED: MIDAZOLAM HCL/PF 2 MG/2 ML VIAL. ONE (14:19)
[2021-11-02] MEDS ORDERED: NITROGLYCERIN 200 MCG/2 ML SYRINGE FOR CATH/VASC LAB. ONE (14:20)
[2021-11-02] MEDS ORDERED: MIDAZOLAM HCL/PF 2 MG/2 ML VIAL. IV ONE (14:30)
[2021-11-02] MEDS ORDERED: IODIXANOL 320 MG/ML 100 ML VIAL. IART ONE (14:30)
[2021-11-02] MEDS ORDERED: fentaNYL PF VIAL 100 MCG/2 ML VIAL IV ONE (14:30)
[2021-11-02] MEDS ORDERED: NITROGLYCERIN 200 MCG/2 ML SYRINGE FOR CATH/VASC LAB. IART ONE (14:30)
[2021-11-02] MEDS ORDERED: HEPARIN for IV BOLUS 10,000 UNIT/10 ML VIAL. IART ONE (14:30)
[2021-11-02] MEDS ORDERED: LIDOCAINE 1% PF 2 ML VIAL. INJ ONE (14:30)
[2021-11-02] MEDS ORDERED: VERAPAMIL 5 MG/2 ML VIAL. IART ONE (14:30)
[2021-11-02] MEDS ORDERED: CONTRAST GIVEN. MC PRN (14:45)
[2021-11-02] MEDS ORDERED: BIVALIRUDIN 250 MG VIAL. IV ONE ×2 (14:52→15:00)
[2021-11-02] MEDS ORDERED: CLOPIDOGREL BISULFATE 75 MG TABLET ONE (15:27)
--- NOTE | 2021-11-02 15:28 | PDOC ---
MODERATE SEDATION ASSESSMENT RISKS/ALTERNATIVES Risks/Alternatives Risks and alternatives of this type of sedation and procedure discussed with: RISK/ALTERNATIVES: Patient H & P ON CHART H & P H & P on chart and reviewed for co-morbid conditions and appropriate labs. H&P ON CHART: Yes STATUS PREG STATUS ASSESSED: N/A MEDS/ALLERGIES REVIEWED Meds/Allergies Reviewed Medications and Allergies including time and route of recently administered narcotics and sedatives. MEDS/ALLERGIES REVIEWED: Yes ASA RATING ASA RATING: III AIRWAY ASSESSMENT Airway Assessment Airway patency, oral function limitations, presence of caps, crowns, dentures, partials, and ability to extend neck assessed. AIRWAY ASSESSMENT: Yes MALLAMPATI SCORE MALLAMPATI SCORE: II PRE-SEDATION ASSESSMENT PRE-SEDATION ASSESSMENT: Yes BECCA WEEMS MD Nov 02, 2021 15:28
[2021-11-02] MEDS ORDERED: ACETAMINOPHEN 325 MG TABLET. PO PRN (15:30)
[2021-11-02] MEDS ORDERED: NITROGLYCERIN SUBLINGUAL 0.4 MG BOTTLE OF 25. SL PRN (15:30)
[2021-11-02] MEDS ORDERED: CLOPIDOGREL BISULFATE 75 MG TABLET PO ONE (15:30)
[2021-11-02] MEDS ORDERED: ATOR40TA59 PO (15:45)
--- NOTE | 2021-11-02 15:54 | CARD ---
MR#: [id number] Date of Study: 11/02/2021 Ordering Physician: BECCA PITTMAN, Referring Physician: BECCA PITTMAN Tech: RT Zoltan(R) APPROVED REPORT Technologist: RT Zoltan(R) Nurse: Nancy Babb RN Procedure(s) performed: 1. Left heart catheterization, selective coronary angiography via right rinaldi sradial approach 2. Successful PCI/drug-eluting stent placement to a large obtuse marginal branch of left circumflex artery MODERATE SEDATION TIME: 50 MINUTES FLUORO TIME: 14.8 MIN DOSE: 131.2 GYCM2 CONTRAST: 136CC VISI INDICATION The indication(s) include : non-STEMI . [facility] Clinical Frailty Scale [facility] Clinical Frailty Scale: Mildly Frail Heart Failure Heart Failure: No CASE TECHNIQUE IV conscious sedation was used throughout procedure with appropriate monitoring and was performed in the presence of a registered nurse who was an independent trained observer other than the physician p erforming the procedure. During this case, Fluoroscopy and low osmolar contrast were used for imaging . Specimen(s) Removed: No Estimated Blood loss: 15 cc's. PROCEDURE NARRATIVE After explaining the risks, benefits and alternative options, informed consent was obtained from paresh ent. Patient was brought to the cardiac Emd Teacher and right wrist was prepped and draped in the usual fashion after confirming a positive modified Benigno's test. Arterial access was obtained in the righ t radial artery and a 6 Grenadian sheath was inserted. 6 Grenadian Nahid and 6 Grenadian JR4 catheters were used to perform selective angiography of the left and right coronary arteries. LVEDP and transaortic gradients were measured. The following findings were noted. FINDINGS 1. Hemodynamics: Left ventricular end-diastolic pressure of 14 mmHg. No pullback gradient across th e aortic valve. 2. Coronary angiography: a. The left main coronary artery arose from the left sinus of Valsalva, gave rise to the left anteri or descending and left circumflex arteries and showed 20% ostial segment stenosis. b. The left anterior descending artery showed 80% stenosis in the mid segment of a small to medium c aliber diagonal branch. The very apical segment showed severe diffuse disease, described in prior ca rdiac catheterizations. c. The left circumflex artery showed a stent in the mid segment with 90% in-stent restenosis in the distal portion. Just beyond the stent, the vessel showed 100% chronic total occlusion with bridging collaterals reconstituting a very small caliber distal vessel. The first obtuse marginal branch whic h is a large-caliber vessel showed 100% occlusion in the proximal segment, appearance very suspicious for spontaneous coronary artery dissection (SCAD). d. The right coronary artery was a large and dominant vessel arising from the right sinus of Valsalv a that showed long 80 to 90% stenosis involving a small to medium caliber posterior descending branch . The main artery itself did not show any significant stenosis. LENNY Flow LENNY Flow (Pre-Intervention): LENNY-0 LENNY Flow (Post-Intervention): LENNY-3 Conclusion 1. 100% occlusion of a large caliber obtuse marginal branch of left circumflex artery with the appea amanda suspicious for spontaneous coronary artery dissection. The previously placed stent in the mid segment of left circumflex artery showed 90% in-stent restenosis with chronic total occlusion just di stal to the stent with distal reconstitution of a small caliber vessel via bridging collaterals. The diagonal branch of LAD she is a small to medium caliber vessel showed 80% stenosis. The posterior d escending branch of the right coronary artery is a small to medium caliber vessel showed 80 to 90% lo ng stenosis. 2. Successful PCI/drug-eluting stent placement to the obtuse marginal branch of left circumflex bladimir ry Recommendations 1. Aspirin 325 mg daily for 1 month followed by 81 mg daily 2. Plavix 75 mg daily 3. Cardiovascular risk factor modification Signed by : Becca Pittman, Electronically Approved : 11/02/2021 15:53:58
[2021-11-02] MEDS: IV 1/2 NORMAL SALINE 1,000 ML IV SCH ×2 (16:41→23:30)
--- NOTE | 2021-11-02 18:34 | NUR ---
Pt admitted to 107 from CV obs. Pt alert oreinted, no c/o pain. TR band present on right radial. Deflated per protocol and TR band removed 1 hours after deflation complete. Arm board left on. Resting at this time/
[2021-11-02] MEDS ORDERED: INSULIN GLARGINE SYRINGE. SQ SCH (21:00)
[2021-11-02] MEDS ORDERED: traZODone 50 MG TABLET. PO SCH (21:00)
[2021-11-02] MEDS ORDERED: ATORVASTATIN CALCIUM 40 MG TABLET. PO SCH (21:00)
[2021-11-02] MEDS: PREGABALIN 50 MG CAPSULE PO SCH (21:02)
--- NOTE | 2021-11-02 21:55 | PDOC1 ---
History and Physical Date of Service: DOS: DATE: 11/02/21 TIME: 21:55 Allergies: Allergies: Coded Allergies: No Known Allergies (Verified Allergy, Unknown, 07/10/19) Current Medications: Current Medications Current Medications Nitroglycerin (Nitroglycerin) 200 mcg 1X ONCE IART Last administered on 11/02/21 14:40; Start 11/02/21 at 14:30; Stop 11/02/21 at 14:36; Status DC Verapamil HCl (Verapamil) 2.5 mg 1X ONCE IART Last administered on 11/02/21 14:40; Start 11/02/21 at 14:30; Stop 11/02/21 at 14:36; Status DC Heparin Sodium (Porcine) (Heparin Sodium) 2,500 unit 1X ONCE IART Last administered on 11/02/21 14:40; Start 11/02/21 at 14:30; Stop 11/02/21 at 14:36; Status DC Heparin Sodium/ Sodium Chloride (HEPARIN for ARTERIAL LINE FLUSH) 1,000 unit 1X ONCE IART Last administered on 11/02/21 14:30; Start 11/02/21 at 14:30; Stop 11/02/21 at 14:36; Status DC Heparin Sodium/ Sodium Chloride (HEPARIN for ARTERIAL LINE FLUSH) 1,000 unit 1X ONCE IART Last administered on 11/02/21 14:30; Start 11/02/21 at 14:30; Stop 11/02/21 at 14:36; Status DC Midazolam HCl (Versed) 2 mg 1X ONCE IV Last administered on 11/02/21 14:36; Start 11/02/21 at 14:30; Stop 11/02/21 at 14:36; Status DC Fentanyl Citrate (Fentanyl 2ml Vial) 100 mcg 1X ONCE IV Last administered on 11/02/21 14:36; Start 11/02/21 at 14:30; Stop 11/02/21 at 14:36; Status DC Iodixanol (Visipaque 320) 100 ml 1X ONCE IART Last administered on 11/02/21 15:18; Start 11/02/21 at 14:30; Stop 11/02/21 at 14:36; Status DC Lidocaine HCl (Xylocaine-Mpf 1% 2ml Vial) 2 ml 1X ONCE INJ Last administered on 11/02/21 14:42; Start 11/02/21 at 14:30; Stop 11/02/21 at 14:36; Status DC Info (CONTRAST GIVEN -- Rx MONITORING) 1 each PRN DAILY PRN MC SEE COMMENTS; Start 11/02/21 at 14:45; Stop 11/04/21 at 14:44 Bivalirudin (Angiomax) 250 mg 1X ONCE IV Last administered on 11/02/21at 14:54; Start 11/02/21 at 15:00; Stop 11/02/21 at 15:02; Status DC Lidocaine HCl (Xylocaine-Mpf 1% 2ml Vial) 2 ml STK-MED ONCE .ROUTE ; Start 11/02/21 at 14:11; Stop 11/02/21 at 15:05; Status DC Iodixanol (Visipaque 320) 100 ml STK-MED ONCE .ROUTE ; Start 11/02/21 at 14:11; Stop 11/02/21 at 15:05; Status DC Heparin Sodium/ Sodium Chloride 500 ml @ As Directed STK-MED ONCE .ROUTE ; Start 11/02/21 at 14:11; Stop 11/02/21 at 15:05; Status DC Fentanyl Citrate (Fentanyl 2ml Vial) 100 mcg STK-MED ONCE .ROUTE ; Start 11/02/21 at 14:19; Stop 11/02/21 at 15:05; Status DC Midazolam HCl (Versed) 2 mg STK-MED ONCE .ROUTE ; Start 11/02/21 at 14:19; Stop 11/02/21 at 15:05; Status DC Heparin Sodium (Porcine) (Heparin Sodium) 10,000 unit STK-MED ONCE .ROUTE ; Start 11/02/21 at 14:19; Stop 11/02/21 at 15:05; Status DC Verapamil HCl (Verapamil) 5 mg STK-MED ONCE .ROUTE ; Start 11/02/21 at 14:19; Stop 11/02/21 at 15:05; Status DC Nitroglycerin (Nitroglycerin) 200 mcg STK-MED ONCE .ROUTE ; Start 11/02/21 at 14:20; Stop 11/02/21 at 15:05; Status DC Bivalirudin (Angiomax) 250 mg STK-MED ONCE IV ; Start 11/02/21 at 14:52; Stop 11/02/21 at 15:06; Status DC Iodixanol (Visipaque 320) 100 ml STK-MED ONCE .ROUTE ; Start 11/02/21 at 14:57; Stop 11/02/21 at 15:06; Status DC Clopidogrel Bisulfate (Plavix) 75 mg STK-MED ONCE .ROUTE ; Start 11/02/21 at 15:27; Stop 11/02/21 at 15:27; Status DC Clopidogrel Bisulfate (Plavix) 300 mg 1X ONCE PO Last administered on 11/02/21at 15:30; Start 11/02/21 at 15:30; Stop 11/02/21 at 15:32; Status DC Sodium Chloride 1,000 ml @ 125 mls/hr Q8H IV Last administered on 11/02/21at 16:41; Start 11/02/21 at 15:30 Aspirin (Ecotrin) 325 mg DAILYWBKFT PO ; Start 11/03/21 at 08:00 Clopidogrel Bisulfate (Plavix) 75 mg DAILYWBKFT PO ; Start 11/03/21 at 08:00 Acetaminophen (Tylenol) 650 mg PRN Q6HRS PRN PO MILD PAIN / TEMP > 100.3'F; Start 11/02/21 at 15:30 Nitroglycerin (Nitrostat) 0.4 mg PRN Q5MIN PRN SL CHEST PAIN; Start 11/02/21 at 15:30 Empaglifozin (Jardiance) 25 mg DAILY PO ; Start 11/03/21 at 09:00 Trazodone HCl (Desyrel) 100 mg HS PO Last administered on 11/02/21at 20:57; Start 11/02/21 at 21:00 Insulin Glargine (Lantus Syringe) 25 unit QHS SQ Last administered on 11/02/21at 21:03; Start 11/02/21 at 21:00 Amlodipine Besylate (Norvasc) 10 mg DAILY PO ; Start 11/03/21 at 09:00 Aspirin (Ecotrin) 81 mg DAILYWBKFT PO ; Start 11/03/21 at 08:00; Status UNV Atorvastatin Calcium (Lipitor) 40 mg HS PO Last administered on 11/02/21at 20:58; Start 11/02/21 at 21:00 Clopidogrel Bisulfate (Plavix) 75 mg DAILY PO ; Start 11/03/21 at 09:00; Status UNV Metformin HCl (Glucophage) 500 mg BIDWMEALS PO ; Start 11/04/21 at 17:00 Losartan Potassium (Cozaar) 100 mg DAILY PO ; Start 11/03/21 at 09:00 Pregabalin (Lyrica) 200 mg BID PO Last administered on 11/02/21at 21:02; Start 11/02/21 at 21:00 Active Scripts Active Hydrochlorothiazide Capsule (Hydrochlorothiazide) 12.5 Mg Capsule 25 Mg PO DAILY 30 Days Losartan Potassium 100 Mg Tablet 1 Tab PO DAILY Aspirin Ec (Aspirin) 81 Mg Tablet.dr 81 Mg PO DAILYWBKFT Reported Atorvastatin Calcium 40 Mg Tablet 40 Mg PO HS Lyrica (Pregabalin) 200 Mg Capsule 200 Mg PO BID 30 Days Trazodone Hcl 50 Mg Tablet 100 Mg PO HS Jardiance (Empagliflozin) 25 Mg Tablet 25 Mg PO DAILY Clopidogrel (Clopidogrel Bisulfate) 75 Mg Tablet 1 Tab PO DAILY Amlodipine Besylate 5 Mg Tablet 10 Mg PO DAILY Basaglar Kwikpen U-100 (Insulin Glargine,Hum.rec.anlog) 100 Unit/1 Ml Insuln.pen 25 Unit SQ HS Metformin Hcl 500 Mg Tablet 500 Mg PO BIDWMEALS ROS: Review of Systems Review of System REVIEW OF SYSTEMS: GENERAL: Denies weakness SKIN: No bruising, hair changes or rashes. EYES: No blurred, double or loss of vision. NOSE AND THROAT: No history of nosebleeds, hoarseness or sore throat. HEART: No history of palpitations, chest pain or shortness of breath on exertion. LUNGS: Denies cough, hemoptysis, wheezing or shortness of breath. GASTROINTESTINAL: Denies changes in appetite, nausea, vomiting, diarrhea or constipation. GENITOURINARY: No history of frequency, urgency, hesitancy or nocturia. NEUROLOGIC: Denies history of numbness, tingling, or tremor. PSYCHIATRIC: No history of panic, anxiety or depression. ENDOCRINE: No history of heat or cold intolerance, polyuria or polydipsia. EXTREMITIES: Denies joint pain, pain on walking or stiffness. Physical Exam: Vital Signs: Vital Signs Date Time Temp Pulse Resp B/P (MAP) Pulse Ox O2 Delivery O2 Flow Rate FiO2 11/02/21 20:00 75 16 137/77 (97) 96 Room Air 11/02/21 16:42 98.1 98.1 11/02/21 15:31 2.0 Physcial Exam: GEN: No apparent distress. Alert and oriented HEENT: Normal cephalic, atraumatic, external auditory canals are patent EYES: Extraocular muscles are intact, pupil are equally round and reactive to light and accommodation MUSCULOSKELETAL: Well developed , well nourished, good range of motion ENDOCRINE: No thyromegaly was palpated LYMPHATICS: No cervical chain or axillary nodes were noted HEMATOPOIETIC: No bruising NECK: Supple, no JVD, no thyromegaly was noted LUNGS: Clear to auscultation in all lung mckeon without rhonchi or wheezing HEART: RRR, S!, S2 present. Peripheral pulses intact, no obvious murmurs noted ABDOMEN: Soft, nontender. Positive bowel sounds, no organomegaly, normal bowel sounds EXTREMITIES: Without clubbing, cyanosis, or edema. Pedal pulses intact. Negative Homans sign NEUROLOGIC: Normal speech and tone. A&O x 3, moves all extremities, no obvious focal deficits PSYCHIATRIC: Normal affect, normal mood. Stable SKIN: No ulcerations or rashes, good skin turgor, no jaundice VASCULAR: Good capillary refill, neurovascular bundle appears to be intact Labs: Labs: Laboratory Tests Test 11/02/21 20:56 Glucose (Fingerstick) 212 mg/dL (70-99) Laboratory Tests Test 11/02/21 20:56 Glucose (Fingerstick) 212 mg/dL (70-99) Justifications for Admission Other Justification ELMA FISHER MD Nov 02, 2021 21:55
[2021-11-03 03:00] VITALS: BP 111/68
[2021-11-03 07:00] VITALS: BP 164/90
[2021-11-03] MEDS: IV 1/2 NORMAL SALINE 1,000 ML IV SCH ×2 (07:30→10:15)
[2021-11-03] MEDS ORDERED: ASPIRIN ENTERIC COATED 81 MG TABLET.DR. PO SCH (08:00)
[2021-11-03] MEDS ORDERED: ASPIRIN ENTERIC COATED 325 MG TABLET.DR. PO SCH (08:00)
[2021-11-03] MEDS ORDERED: CLOPIDOGREL BISULFATE 75 MG TABLET PO SCH ×2 (08:00→09:00)
[2021-11-03 08:38] LABS: CALCIUM 8.4 mg/dL (8.5-10.1); CREATININE 0.9 mg/dL (0.7-1.3); POTASSIUM 3.6 mmol/L (3.5-5.1)
[2021-11-03] MEDS ORDERED: EMPAGLIFLOZIN 25 MG TABLET. PO SCH (09:00)
[2021-11-03] MEDS ORDERED: LOSARTAN POTASSIUM 50 MG TABLET. PO SCH (09:00)
[2021-11-03] MEDS: PREGABALIN 50 MG CAPSULE PO SCH (09:05)
[2021-11-03] MEDS ORDERED: CLOP75TA PO (10:00)
[2021-11-03] MEDS ORDERED: METO-239 PO (10:00)
[2021-11-03] MEDS ORDERED: ASPI325T11 PO (10:00)
[2021-11-03] MEDS ORDERED: NITR0.4T22 SL (10:03)
--- NOTE | 2021-11-03 10:23 | PDOC ---
CARDIO Progress Notes Date and Time Date of Service 11/03/2021 Time of Evaluation 0950 Subjective Subjective: No Chest Pain, No shortness of breath, No Palpitations Vitals Vitals Vital Signs Date Time Temp Pulse Resp B/P (MAP) Pulse Ox O2 Delivery O2 Flow Rate FiO2 11/03/21 08:40 73 164/90 11/03/21 07:00 98.1 18 95 Room Air 98.1 11/02/21 15:31 2.0 Weight Weight [ ] Input and Output Intake and Output Intake and Output 11/03/21 07:00 Intake Total 350 ml Output Total 0 ml Balance 350 ml Intake Oral 350 ml Output Urine Total 0 ml # Voids 2 Laboratory Labs Laboratory Tests Test 11/02/21 20:56 11/03/21 07:55 Glucose (Fingerstick) 212 mg/dL (70-99) Sodium Level 137 mmol/L (136-145) Potassium Level 3.6 mmol/L (3.5-5.1) Chloride Level 102 mmol/L (98-107) Carbon Dioxide Level 26 mmol/L (21-32) Anion Gap 9 (6-14) Blood Urea Nitrogen 19 mg/dL (8-26) Creatinine 0.9 mg/dL (0.7-1.3) Estimated GFR (Cockcroft-Gault) 87.0 Glucose Level 89 mg/dL (70-99) Calcium Level 8.4 mg/dL (8.5-10.1) Magnesium Level 2.0 mg/dL (1.8-2.4) Physical Exam HEENT: Neck Supple W Full Motion Chest: Symmetric LUNGS: Clear to Auscultation Heart: S1S2, RRR (SR) Abdomen: Soft N/T Extremities: No Edema, No Calf Tenderness Neurology: alert, oriented, follow commands Assessment Assessment 1. NSTEMI: S/P PCI/KALI to OM-LCx see Cath report below 2. CAD s/p PCI/stenting of the LCx 2017 as noted above. 3. HTN 3. HLP 4. DM2 PCI 1. 100% occlusion of a large caliber obtuse marginal branch of left circumflex artery with the appearance suspicious for spontaneous coronary artery dissection. The previously placed stent in the mid segment of left circumflex artery showed 90% in-stent restenosis with chronic total occlusion just distal to the stent with distal reconstitution of a small caliber vessel via bridging collaterals. The diagonal branch of LAD she is a small to medium caliber vessel showed 80% stenosis. The posterior descending branch of the right coronary artery is a small to medium caliber vessel showed 80 to 90% long stenosis. 2. Successful PCI/drug-eluting stent placement to the obtuse marginal branch of left circumflex artery Recommendations ASA therapy full dose for 1 mo then 81 mg thereafter. Plavix daily May restart metformin tomorrow Restart secondary prevention measures. Will cute dose of norvasc in 09/27 then introduce toprol low dose. HBPM bid for 1 week. NTG SL TTE Cardiac rehab. DC this afternoon Justicifation of Admission Dx: Justifications for Admission: Justification of Admission Dx: Yes BEAR PANTOJA APRN Nov 03, 2021 10:23
[2021-11-03 11:00] VITALS: BP 146/73
[2021-11-03] MEDS ORDERED: AMLO-186 PO (13:36)
[2021-11-03] MEDS ORDERED: PERFLUTREN PROTEIN-A MICROSPHR 0.22 MG/ML 3 ML VIAL. IV ONE ×2 (14:00→14:05)
--- NOTE | 2021-11-03 15:30 | NUR ---
Discharge Note: [facility] Discharge instructions and discharge home medications reviewed with Patient and a copy given. All questions have been answered and understanding verbalized. The following instructions and handouts were given: post heart cath and cardiac diet Discontinued iv line and catheter intact. Patient discharged to home with self-care.
--- NOTE | 2021-11-03 17:45 | CARD ---
MR#: [id number] Date of Study: 11/03/2021 Ordering Physician: BEAR PANTOJA, Referring Physician: BEAR PANTOJA Tech: Amara Kim [facility] APPROVED REPORT EXAM: Two-dimensional and M-mode echocardiogram with Doppler and color Doppler. Other Information Quality : Technically LimitedHR: 77bpm Rhythm : NSR INDICATION Cardiac Disease: CAD Echo Enhancing Agent Indication: Endocardial border delineation Agent/Amount Used: Optison 2mL RISK FACTORS Hypertension Hyperlipidemia 2D DIMENSIONS RVDd3.2 (2.9-3.5cm)Left Atrium(2D)4.5 (1.6-4.0cm) IVSd1.1 (0.7-1.1cm)Aortic Root(2D)3.3 (2.0-3.7cm) LVDd4.4 (3.9-5.9cm)LVOT Diameter2.6 (1.8-2.4cm) PWd1.0 (0.7-1.1cm)LVDs2.8 (2.5-4.0cm) FS (%) 35.6 %SV56.7 ml Aortic Valve AoV Peak Sohail.149.3cm/sAoV VTI25.5cm AO Peak GR.8.9mmHgLVOT Peak Sohail.106.5cm/s AO Mean GR.3mmHgAVA (VMAX)3.65cm2 Mitral Valve MV E Tjqfqfxk93.0cm/sMV DECEL [id number] MV A Yydzttql42.3cm/sE/A Ratio0.9 Pulmonary Valve PV Peak Vgcmzjix876.8cm/s LEFT VENTRICLE The left ventricle is normal size. There is normal left ventricular wall thickness. The left ventricu lar systolic function is normal and the ejection fraction is within normal range. LV ejection fractio n of 55 to 60%. There is normal LV segmental wall motion. Transmitral Doppler flow pattern is Grade I -abnormal relaxation pattern. RIGHT VENTRICLE The right ventricle is normal size. There is normal right ventricular wall thickness. The right ventr icular systolic function is normal. ATRIA The left atrium size is normal. The right atrium size is normal. The interatrial septum is intact wit h no evidence for an atrial septal defect or patent foramen ovale as noted on 2-D or Doppler imaging. AORTIC VALVE The aortic valve is normal in structure and function. Doppler and Color Flow revealed no significant aortic regurgitation. There is no significant aortic valvular stenosis. MITRAL VALVE The mitral valve is normal in structure and function. There is no evidence of mitral valve prolapse. There is no mitral valve stenosis. Doppler and Color-flow revealed trace mitral regurgitation. TRICUSPID VALVE The tricuspid valve is normal in structure and function. Doppler and Color Flow revealed no tricuspid valve regurgitation noted. There is no tricuspid valve stenosis. PULMONIC VALVE The pulmonary valve is normal in structure and function. Doppler and Color Flow revealed trace to mil d pulmonic valvular regurgitation. GREAT VESSELS The aortic root is normal in size. The ascending aorta is normal in size. The IVC is normal in size a nd collapses >50% with inspiration. PERICARDIAL EFFUSION There is no evidence of significant pericardial effusion. Critical Notification Critical Value: No <Conclusion> The left ventricle is normal size. The left ventricular systolic function is normal and the ejection fraction is within normal range. LV ejection fraction of 55 to 60%. Doppler and Color Flow revealed no significant aortic regurgitation. There is no significant aortic valvular stenosis. Doppler and Color-flow revealed trace mitral regurgitation. Doppler and Color Flow revealed no tricuspid valve regurgitation noted. Signed by : Sarmad Russell MD Electronically Approved : 11/03/2021 17:44:43
[2021-11-04] MEDS ORDERED: metFORMIN 500 MG TABLET PO SCH (17:00)
== END 2021-11-03 16:18 | disposition home or self-care (01) | DRG 246 ==
LOC: OPSVCIP 11:02 → 1 WEST ICU 16:24
PROVIDERS: ADMIT Internal Medicine; ATTEND Internal Medicine
PROC: 027034Z Dilation of Coronary Artery, One Artery with Drug-eluting Intraluminal Device, Percutaneous Approach (ICD-10-PCS; principal; 2021-11-02)
PROC: 4A023N7 Measurement of Cardiac Sampling and Pressure, Left Heart, Percutaneous Approach (ICD-10-PCS; 2021-11-02)
PROC: B211YZZ Fluoroscopy of Multiple Coronary Arteries using Other Contrast (ICD-10-PCS; 2021-11-02)
DX: I21.4 Non-ST elevation (NSTEMI) myocardial infarction (principal); I25.42 Coronary artery dissection; E11.9 Type 2 diabetes mellitus without complications; E78.5 Hyperlipidemia, unspecified; I10 Essential (primary) hypertension; I25.10 Atherosclerotic heart disease of native coronary artery without angina pectoris; Z95.5 Presence of coronary angioplasty implant and graft
CPT/HCPCS: 92928; 93458; C8929; 36415; 80048; 82962; 83735; 93005; 99152; 99153; C1725; C1894; J0583; J1644; J1815; J2250; J3010; J3490; Q9956; Q9967; G0378